=== PATIENT | male | born 1930 | race Caucasian/White ===

== ENCOUNTER 2016-10-25 10:14 | Inpatient (IN) | payer MEDICARE ==
[~2016-10-25] VITALS: Ht 180.3 cm; Wt 67.0 kg
[~2016-10-25 10:14] MED LIST: BAYER CHEWABLE81 MG; BAYER CHEWABLE81 MG PO; BETAPACE 80 MG80 MG PO; COUMADIN2.5 MG; ELAVIL10 MG PO; ELIQUIS2.5 MG PO; MULTI-DAY VITAM1 TAB; MULTI-DAY VITAM1 TAB PO; NORVASC2.5 MG; PLAVIX75 MG PO; PROSCAR5 MG PO; TRAVATAN Z2.5 ML EACH EYE; VITAMIN B COMPL1 TA1; VITAMIN D31000 UNIT; VITAMIN D31000 UNIT PO; XARELTO20 MG PO; ZESTRIL20 MG PO; ZOCOR40 MG PO
[2016-10-25 11:20] LABS: BASOPHILS 0.6 % (0.0-2.0); EOSINOPHILS 2.3 % (0-7); HEMATOCRIT 38.1 % (42.0-54.0); HEMOGLOBIN 12.2 g/dL (13.5-17.5); IMMATURE GRANULOCYTES 0.3 % (0-5); MCH 31.5 pg (26.0-34.0); MCV 98.4 fL (80.0-100.0); MEAN PLATELET VOLUME 10.5 fL (7.4-10.4); MONOCYTES 6.3 % (2-11); NEUTROPHILS 73.5 % (40-80); PLATELET COUNT 187 10x3/uL (130-400); RBC 3.87 10x6/uL (4.20-6.10); RDW 14.7 % (11.5-14.5); WBC 6.8 10x3/uL (4.8-10.8)
[2016-10-25 11:34] LABS: APTT 33.8 SECONDS (22.8-39.4); INR 1.08 (0.85-1.17); PROTIME 13.8 SECONDS (11.6-15.0)
[2016-10-25 11:38] LABS: ALBUMIN 3.4 g/dL (3.4-5.0); ANION GAP 10.9 mmol/L (8-16); BILIRUBIN - TOTAL 0.71 mg/dL (0.2-1.3); CALCIUM 8.9 mg/dL (8.5-10.1); CARBON DIOXIDE 30.2 mmol/L (21.0-32.0); CREATININE - SERUM 1.1 mg/dL (0.6-1.3); POTASSIUM - SERUM 4.1 mmol/L (3.5-5.1); PROTEIN - SERUM 7.2 g/dL (6.4-8.2)
[2016-10-25 14:02] VITALS: BP 180/89; Ht 180.3 cm; Wt 67.0 kg
[2016-10-25 16:52] VITALS: BP 148/65
[2016-10-25 20:00] VITALS: BP 147/78
[2016-10-26 00:19] VITALS: BP 157/90
[2016-10-26 04:22] VITALS: BP 156/84
[2016-10-26 06:59] LABS: EOSINOPHILS 3.7 % (0-7); HEMATOCRIT 35.9 % (42.0-54.0); HEMOGLOBIN 11.5 g/dL (13.5-17.5); IMMATURE GRANULOCYTES 0.3 % (0-5); LYMPHOCYTES 20.1 % (15-50); MCH 31.1 pg (26.0-34.0); NEUTROPHILS 65.9 % (40-80); PLATELET COUNT 176 10x3/uL (130-400); RDW 14.6 % (11.5-14.5); WBC 7.3 10x3/uL (4.8-10.8)
[2016-10-26 07:17] LABS: ALKALINE PHOSPHATASE 36 U/L (46-116); ALT (SGPT) 22 U/L (10-68); BILIRUBIN - TOTAL 0.91 mg/dL (0.2-1.3); CALC OSMOLALITY 278 mosm/kg (275-300); CARBON DIOXIDE 29.5 mmol/L (21.0-32.0); CHLORIDE - SERUM 105 mmol/L (98-107); GLUCOSE 85 mg/dL (74-106); PROTEIN - SERUM 6.5 g/dL (6.4-8.2); SODIUM 139 mmol/L (136-145); UREA NITROGEN 19 mg/dL (7-18); eGFR NON AFRICAN AMERICAN 75 mL/min (90-120)
[2016-10-26 08:09] VITALS: BP 140/70
[2016-10-26 12:49] VITALS: BP 136/84
[2016-10-26 15:53] VITALS: BP 144/80
[2016-10-26 19:00] VITALS: BP 128/69
[2016-10-27 04:42] VITALS: BP 132/79
[2016-10-27 08:38] VITALS: BP 171/66
[2016-10-27] MEDS ORDERED: ELIQUIS2.5 MG PO (08:57)
--- NOTE | 2016-10-27 11:13 | DS ---
PATIENT:NAEEM MITCHELL :30 MEDICAL RECORD: [id number] DISCHARGE SUMMARY ADMISSION DATE: 10/25/16 DISCHARGE DATE: DATE OF ADMISSION: 10/25/2016 DATE OF DISCHARGE: 10/27/2016 CONDITION ON DISCHARGE: Improved. ADMITTING DIAGNOSES: 1. Cerebrovascular accident. 2. History of hypertension. 3. History of chronic atrial fibrillation. DISCHARGE DIAGNOSES: 1. Cerebrovascular accident. 2. History of hypertension. 3. History of chronic atrial fibrillation. HOSPITAL COURSE: The patient is an 86-year-old gentleman who has had a history of having dizziness for the past couple of days, states he was not getting better, feels he may have had a CVA. The patient presented to the Emergency Room via ambulance with some hypertension. The patient was admitted. Neurosurgery consultation was obtained. He was seen in consultation by Dr. Fredy Davis. 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 The patient also had findings suggestive of a subacute infarct involving the left thalamus as well as the mesial temporal lobe and occipital lobe on the left carotid Doppler was performed. His carotid Doppler revealed mild plaque at the carotid bifurcation bilaterally. There is no evidence of hemodynamically significant stenosis. Cranial MRI was performed. Cranial MRI revealed right vertebral artery and left posterior cerebral arteries attenuated on the noncontrast study. It was felt the patient should have a CTA to evaluate the arteries. CTA of the neck revealed no significant stenosis in the carotid arteries. There is tortuosity of the internal carotid arteries. Vertebral artery flow was antegrade. The patient was also on telemetry. He was in a controlled chronic atrial fibrillation. His symptoms did resolve over the following couple of days. It was felt the patient was stable and could be discharged home. DISCHARGE INSTRUCTIONS: The patient was therefore discharged on Eliquis 2.5 mg 1 p.o. b.i.d., Elavil 20 mg p.o. q.h.s., Zocor 20 mg p.o. every day, aspirin 81 mg once a day, one multivitamin once a day, vitamin D3 of 1000 international units once a day, ____ 20 mg once a day. ACTIVITIES: Ad jameel. DIET: [place] diet. FOLLOWUP: He would follow up with Dr. Stein the following week. TRANSINT:[id number] Voice Confirmation ID: [id number] DOCUMENT ID: [id number] DISCHARGE SUMMARY REPORT [id number] NAEEM MITCHELL JAMES MD at 1113 CC: [id number] DICTATION DATE: 10/27/16903 [facility] MANAGER: 10/27/16 1002 ADM IN [facility] [address] [place] [address]
--- NOTE | 2016-10-31 14:44 | EC ---
PATIENT:NAEEM MITCHELL DATE OF SERVICE: 10/25/16 SEX: M MEDICAL RECORD: [id number] DATE OF : 30 LOCATION:D.MS [facility] AGE OF PATIENT: 86 ADMISSION DATE: 10/25/16 REFERRING PHYSICIAN: INTERPRETING PHYSICIAN: WILFREDO MALIK MD ECHOCARDIOGRAM REPORT ECHO CHARGES 4 ECHO COMPLETE CLINICAL DIAGNOSIS: R CLOTH BLEACHING RANGE TENDER INFARCT/ AFIB ECHOCARDIOGRAPHIC MEASUREMENTS (adult normal given) AC root (d.<3.7cm) 4.7 LV Septum d (<1.2 cm> 2.0 Valve Excursion 1.8 LV Septum (systole) 2.1 Left Atria (s.<4.0cm> 3.9 LVPW d(<1.2cm) 1.9 RV (d.<2.3cm) 4.1 LVPW (sytole) 2.1 LV diastole(<5.6CM) 5.1 MV E-F(>70mm/sec) LV systole 3.6 LVOT Diameter 1.9 MV exc.(>10mm) 1.7 Est.ejection fraction (50-75%) Pericardial Effusion N DOPPLER: LVIT A 36.0 E 127 LA RVSP 44 LVOT 89 AOP1/2T Asc. Ao 134 RVOT 89 RA PA 123 AV Gradient Peak 7.23 AV Mean 3.8 AV Area 1.8 MV Gradient Peak 717 MV Mean 1.73 MV Area COMMENTS: Floriculture Professor: Gabe HANNA Personal Lines Account Executive:Maria Esther Darden TAPE# PACS DATE OF SERVICE: 10/26/2016 Adequate 2D echo, color flow and spectral Doppler, M-mode. LVH is present. LV internal dimensions are normal. Wall motion is normal. EF is greater than 55%. Aortic valve sclerosis without stenosis by Doppler interrogation. The left atrium is normal. Mitral valve shows no prolapse. Mild MR. Right-sided chamber is grossly normal. Mild TR. TRANSINT:[id number] Voice Confirmation ID: [id number] DOCUMENT ID: [id number] 10/31/2015 Edited to correct date of service, dmm. ECHOCARDIOGRAM REPORT [id number] NAEEM MITCHELL WILFREDO KEENAN MD at 1444 CC: [id number] DICTATION DATE: 10/27/16 09 FIELD HOCKEY COACH: 10/27/16 1023 DIS IN 10/27/16 [facility] [address] [address]
== END 2016-10-27 14:03 | disposition home or self-care (01) | DRG 66 ==
LOC: D.ER 10:14 → D.MS 12:51
PROVIDERS: Emergency Medicine; Family Medicine; ADMIT Family Medicine
DX: I63.9 Cerebral infarction, unspecified (principal); R42 Dizziness and giddiness; I10 Essential (primary) hypertension; I48.2 Chronic atrial fibrillation; Z87.891 Personal history of nicotine dependence

== ENCOUNTER → 2016-10-31 19:32 | Outpatient (CLI) | payer MEDICARE ==
[2016-10-25 14:02] VITALS: BMI 22.3
[2016-10-31 19:48] LABS: INR 1.28 (0.85-1.17); PROTIME 15.9 SECONDS (11.6-15.0)
== END | disposition home or self-care (01) ==
LOC: D.LABREF 19:32
PROVIDERS: Family Medicine
DX: I63.9 Cerebral infarction, unspecified (principal)

== ENCOUNTER → 2016-11-14 19:00 | Outpatient (CLI) | payer MEDICARE ==
[2016-10-25 14:02] VITALS: BMI 22.3
== END | disposition home or self-care (01) ==
LOC: D.LABREF 19:00
DX: D53.9 Nutritional anemia, unspecified (principal)

== ENCOUNTER 2017-10-27 16:16 | Inpatient (IN) | payer MEDICARE ==
[~2017-10-27] VITALS: Ht 180.3 cm; Wt 70.3 kg
--- NOTE | ~2017-10-27 | DS ---
PATIENT:NAEEM MITCHELL :30 MEDICAL RECORD: [id number] DISCHARGE SUMMARY ADMISSION DATE: 10/28/17 DISCHARGE DATE: 10/29/17 An 87-year-old male. DATE OF ADMISSION: 10/28/2017. DATE OF DISCHARGE: 10/29/2017. ADMISSION DIAGNOSES: Acute influenza, generalized weakness, advanced age, comorbidities of chronic atrial fibrillation, remote cerebrovascular accident, hypertension. DISCHARGE DIAGNOSES: Acute influenza, generalized weakness, advanced age, and comorbidities as above. HOSPITAL COURSE: The patient was admitted with extreme weakness, difficulty transferring independently due to acute influenza and comorbidities, no other acute changes, was started on Tamiflu, given some IV fluids. The patient is feeling better this morning, he is transferring independently going to the bathroom by himself, anxious to go home, wants to sleep in his own bed, has assisted living, can bring meals to his room. He is discharged home in improved condition. PHYSICAL EXAMINATION: VITAL SIGNS ON DISCHARGE: Temperature 99, blood pressure is 115/60, heart rate 70, respirations 19, O2 sats 97%. GENERAL: Alert and oriented, no present distress, again expressed desire to go home. HEART: Irregularly irregular, rate controlled. LUNGS: Clear. ABDOMEN: Soft. EXTREMITIES: Present times 4. NEUROLOGIC: Intact. SKIN: Warm and dry. No rash. LABORATORY DATA: CBC: White count 5, hemoglobin 11.2, hematocrit 34.1, platelets 133. Chemistry: BUN is 20, creatinine 1.1, sodium 137, potassium 4, chloride 102, bicarbonate 27.2, glucose 93. DISCHARGE INSTRUCTIONS: The patient is alert, oriented, answers appropriately, moving transferring independently. Discussed pros and cons of discharge. The patient is adamant about going home. Discharged home in significantly improved condition. We will discharge with home health for any assistance until he completely recovers from the influenza. His assisted living is instructed to provide meals to his room for 7 days to prevent spread of influenza. The patient expressed understanding. TRANSINT:[id number] Voice Confirmation ID: [id number] DOCUMENT ID: [id number] DISCHARGE SUMMARY REPORT [id number] NAEEM MITCHELL ROBERT DO at 0802 CC: [id number] DICTATION DATE: 10/29/17 0738 SALES REPRESENTATIVE PUBLIC UTILITIES: 10/29/17 1416 DIS IN 10/29/17 [facility] [address] [place] [address]
--- NOTE | ~2017-10-27 | HP ---
PATIENT: NAEEM MITCHELL MEDICAL RECORD: [id number] ACCOUNT: [id number] LOCATION:D.MS [id number] : 30 ADMISSION DATE: 10/28/17 HISTORY AND PHYSICAL EXAMINATION HISTORY OF PRESENT ILLNESS: An 87-year-old male presented to the Emergency Room with fever, chills, multiple falls in the past 2 days, cough, wheezing. PAST MEDICAL HISTORY: Significant for heart disease, arrhythmia, AFib, hypertension, CVA, hernia surgery. ALLERGIES: PENICILLIN. CURRENT MEDICATIONS: Low dose aspirin daily, Singulair 10 mg daily, amitriptyline 10 mg, simvastatin 40 mg daily, lisinopril 20 mg daily, levocetirizine 5 mg at bedtime. REVIEW OF SYSTEMS: GENERAL: Decreased appetite with acute illness. No known change in weight. HEENT: Denies cephalgia, visual changes, tinnitus, epistaxis, or dysphagia. CARDIOVASCULAR: Denies chest pain. PULMONARY: Denies hemoptysis. Admits wheezing and cough. GASTROINTESTINAL: Denies hematemesis, hematochezia, or melena. GENITOURINARY: Denies dysuria. MUSCULOSKELETAL: Generalized body aches, generalized weakness with acute illness. PHYSICAL EXAMINATION: VITAL SIGNS: Temperature on admission 100.3, present temperature 97.3, blood pressure 133/67, heart rate 51, respirations 19, O2 sats 99%. GENERAL: Alert, oriented. HEENT: Normocephalic, atraumatic. Eyes: Pupils equal, round, reactive to light and accommodation. Extraocular muscles intact. Conjunctiva was not injected. Ears: Canals patent, TMs are intact. Nose: Nares patent without drainage. Throat: No erythema, no exudates. NECK: Supple. No lymphadenopathy, no JVD. HEART: Regular. LUNGS: Mild expiratory wheeze. Breathing is nonlabored. ABDOMEN: Soft, nontender. Bowel sounds all 4 quadrants. EXTREMITIES: Present times 4. Generalized weakness. LABORATORY DATA AND DIAGNOSTIC DATA: Urinalysis, yellow clear. Normal UA. CBC: White count 7.7, hemoglobin 12.1, hematocrit 36.4, platelets 140. Lymphocytes 7.1. Chemistry shows a sodium of 135, potassium 4.3, chloride 100, bicarbonate 28.7, BUN 23, creatinine 1.1. Influenza A negative, influenza B positive. Chest x-ray: No acute chest findings. ASSESSMENT AND PLAN: Acute influenza with generalized weakness, advanced age. The patient was admitted, supportive care. DuoNebs q.i.d., accurate I's and O's, Tamiflu 75 mg b.i.d. for 5 days. TRANSINT:[id number] Voice Confirmation ID: [id number] DOCUMENT ID: [id number] HISTORY AND PHYSICAL [id number] NAEEM MITCHELL, NAEEM KRISHNAN at 0724 CC: [id number] DICTATION DATE: 10/28/17 0747 CHECK PROCESSOR: 10/28/17 0852 ADM IN [facility] [address] [place] [id number]
[2017-10-27 17:13] LABS: BASOPHILS 0.1 % (0-2); EOSINOPHILS 0 % (0-7); HEMATOCRIT 36.4 % (42.0-54.0); HEMOGLOBIN 12.1 g/dL (13.5-17.5); IMMATURE GRANULOCYTES 0.3 % (0-5); LYMPHOCYTES 7.1 % (15-50); MCH 32.2 pg (26.0-34.0); MCHC 33.2 g/dL (31.0-37.0); MCV 96.8 fL (80.0-100.0); MEAN PLATELET VOLUME 10.5 fL (7.4-10.4); MONOCYTES 7.3 % (2-11); NEUTROPHILS 85.2 % (40-80); PLATELET COUNT 140 10x3/uL (130-400); RBC 3.76 10x6/uL (4.20-6.10); RDW 13.7 % (11.5-14.5); WBC 7.7 10x3/uL (4.8-10.8)
[2017-10-27 17:21] LABS: ANION GAP 10.6 mmol/L (8-16); CALCIUM 8.9 mg/dL (8.5-10.1); CARBON DIOXIDE 28.7 mmol/L (21.0-32.0); CREATININE - SERUM 1.1 mg/dL (0.6-1.3); POTASSIUM - SERUM 4.3 mmol/L (3.5-5.1)
[2017-10-27 21:17] LABS: APPEARANCE CLEAR (CLEAR); BILIRUBIN NEGATIVE (NEGATIVE); COLOR YELLOW (YELLOW); GLUCOSE NEGATIVE (NEGATIVE); KETONE NEGATIVE (NEGATIVE); NITRITE NEGATIVE (NEGATIVE); PROTEIN TRACE mg/dL (NEGATIVE); SPECIFIC GRAVITY 1.015 (1.005-1.020); UROBILINOGEN NORMAL (NORMAL)
[2017-10-28 04:00] VITALS: BP 131/53
[2017-10-28 05:17] VITALS: BP 133/67; BMI 21.6
[2017-10-28 09:56] VITALS: BP 131/64
[2017-10-28] MEDS ORDERED: SINGULAIR10 MG PO (11:01)
[2017-10-28] MEDS ORDERED: XYZAL5 MG PO (11:03)
[2017-10-28 11:13] VITALS: Ht 180.3 cm; Wt 70.3 kg
[2017-10-28 12:47] VITALS: BP 100/53
[2017-10-28 16:13] VITALS: BP 138/66
[2017-10-28 20:00] VITALS: BP 131/57
[2017-10-29] VITALS: BP 102/55
[2017-10-29 05:53] VITALS: BP 115/60
[2017-10-29 06:12] LABS: BASOPHILS 0.2 % (0-2); EOSINOPHILS 0.4 % (0-7); HEMATOCRIT 34.1 % (42.0-54.0); HEMOGLOBIN 11.2 g/dL (13.5-17.5); IMMATURE GRANULOCYTES 0.2 % (0-5); LYMPHOCYTES 24.5 % (15-50); MCHC 32.8 g/dL (31.0-37.0); MCV 97.4 fL (80.0-100.0); MONOCYTES 10.3 % (2-11); NEUTROPHILS 64.4 % (40-80); PLATELET COUNT 133 10x3/uL (130-400); RDW 14.1 % (11.5-14.5)
[2017-10-29 06:25] LABS: ANION GAP 11.8 mmol/L (8-16); CARBON DIOXIDE 27.2 mmol/L (21.0-32.0); CREATININE - SERUM 1.1 mg/dL (0.6-1.3)
[2017-10-29] MEDS ORDERED: TAMIFLU75 MG PO (07:31)
[2017-10-29 08:07] VITALS: BP 129/74
== END 2017-10-29 13:00 | disposition home or self-care (01) | DRG 153 ==
LOC: D.ER 16:16 → OBSVTIME 20:38 → D.MS 20:38
PROVIDERS: Family Medicine
DX: J11.1 Influenza due to unidentified influenza virus with other respiratory manifestations (principal); I48.2 Chronic atrial fibrillation; I10 Essential (primary) hypertension; R53.1 Weakness; Z91.81 History of falling

== ENCOUNTER 2018-01-12 13:38 | Emergency (ER) | payer MEDICARE ==
[2017-10-28 11:13] VITALS: BMI 21.6
[~2018-01-12 13:38] MED LIST changes: +SINGULAIR10 MG PO; +TAMIFLU75 MG PO; +XYZAL5 MG PO
[2018-01-12 15:43] LABS: BASOPHILS 0.5 % (0-2); EOSINOPHILS 1.9 % (0-7); HEMATOCRIT 35.4 % (42.0-54.0); HEMOGLOBIN 11.6 g/dL (13.5-17.5); IMMATURE GRANULOCYTES 0.3 % (0-5); LYMPHOCYTES 17.9 % (15-50); MCH 31.8 pg (26.0-34.0); MCHC 32.8 g/dL (31.0-37.0); MONOCYTES 9.4 % (2-11); RBC 3.65 10x6/uL (4.20-6.10); RDW 14.3 % (11.5-14.5); WBC 8.6 10x3/uL (4.8-10.8)
[2018-01-12 15:48] LABS: PLATELET COUNT 237 10x3/uL (130-400)
[2018-01-12 16:06] LABS: ALBUMIN 3.1 g/dL (3.4-5.0); ANION GAP 11.5 mmol/L (8-16); BILIRUBIN - TOTAL 1.13 mg/dL (0.2-1.3); CALCIUM 8.5 mg/dL (8.5-10.1); CARBON DIOXIDE 29.2 mmol/L (21.0-32.0); CREATININE - SERUM 1.1 mg/dL (0.6-1.3); POTASSIUM - SERUM 3.7 mmol/L (3.5-5.1); PROTEIN - SERUM 7.4 g/dL (6.4-8.2)
== END 2018-01-12 18:26 | disposition home or self-care (01) ==
LOC: D.ER 13:38
PROVIDERS: Family Medicine
DX: R60.0 Localized edema (principal); I50.9 Heart failure, unspecified; I48.91 Unspecified atrial fibrillation; I44.7 Left bundle-branch block, unspecified